=== PATIENT | male | born 1940 | race Caucasian/White ===

== ENCOUNTER → 2016-04-05 | Outpatient (CLI) | payer MEDICARE, BC ==
[2016-04-05 07:54] LABS: POTASSIUM 5.7 mmol/L (3.5-5.1)
[2016-04-05 07:56] LABS: CREATININE 2.53 mg/dl (0.61-1.24)
[2016-04-05 07:57] LABS: CALCIUM 8.6 mg/dl (8.4-10.2)
--- NOTE | 2016-04-05 09:42 | RADRPT ---
PROCEDURE: XR Chest. CLINICAL INDICATION: Cough. TECHNIQUE: Two views. Frontal and lateral. COMPARISON: 08/10/2014. FINDINGS: There is mild atelectasis at the lung bases. The lungs are otherwise clear. The heart is enlarged. There is calcification in the aorta consistent with atherosclerosis. There are sternal wires. There is a left-sided dual lead permanent pacemaker/internal cardiac defibrillat or. There is no pleural effusion. There is no pneumothorax. IMPRESSION: 1. Mild atelectasis at the lung bases. 2. Cardiomegaly and atherosclerosis. 3. Previous median sternotomy. 4. Permanent pacemaker/internal cardiac defibrillator. RPTAT: QQ .Jayjay Posadas MD, MD Date Time Electronically viewed and signed by .Jayjay Posadas MD, MD on 04/05/2016 09:42 .R/
== END | disposition home or self-care (01) ==
LOC: LAB 07:04
PROVIDERS: ATTEND Nuclear Medicine Nuclear Cardiology
DX: E11.9 Type 2 diabetes mellitus without complications (principal); R60.9 Edema, unspecified
CPT/HCPCS: 71020; 80048